=== PATIENT | male | born 1955 | race Asian ===

== ENCOUNTER 2018-12-01 09:24 | Emergency (ER) | payer OTHER ==
[~2018-12-01] VITALS: Ht 165.1 cm; Wt 60.0 kg
[2018-12-01 09:28] VITALS: Ht 165.1 cm; Wt 60.0 kg
[2018-12-01] MEDS ORDERED: SOD CHLORIDE 0.9% 600 ML IV ONE (10:00)
[2018-12-01] MEDS ORDERED: INSU100I12 SQ (10:17)
[2018-12-01] MEDS ORDERED: FLUT1AER INHALATION (10:18)
[2018-12-01] MEDS ORDERED: ALBU18HF INHALATION (10:18)
[2018-12-01] MEDS ORDERED: ALBU2.5V3 NEB (10:18)
[2018-12-01] MEDS ORDERED: ALBU90AE INHALATION (10:19)
[2018-12-01] MEDS ORDERED: TIOT18CA INHALATION (10:19)
[2018-12-01] MEDS ORDERED: LANT3I SC (10:20)
[2018-12-01] MEDS ORDERED: SITA100T11 PO (10:21)
[2018-12-01] MEDS ORDERED: OLOP5DRO12 BOTH EYES (10:21)
[2018-12-01] MEDS ORDERED: ROFL500T6 PO (10:21)
[2018-12-01] MEDS ORDERED: METF100010 PO (10:22)
[2018-12-01] MEDS ORDERED: ASPI-817 PO (10:28)
[2018-12-01] MEDS ORDERED: LOSA25TA12 PO (10:28)
[2018-12-01] MEDS ORDERED: SIMV10TA PO (10:28)
[2018-12-01] MEDS ORDERED: SOD CHLORIDE 0.9% 1,000 ML IV STA (10:58)
[2018-12-01] MEDS ORDERED: INSULIN LISPRO 100 UNIT/ML VIAL SC STA (10:58)
[2018-12-01] MEDS ORDERED: GLUCAGON 1 MG INJ IM PRN (11:30)
[2018-12-01] MEDS ORDERED: GLUCOSE GEL 15 GRAM TUBE BUCCAL PRN (11:30)
[2018-12-01] MEDS ORDERED: GLUCOSE GEL 15 GRAM TUBE PO PRN ×2 (11:30)
[2018-12-01] MEDS ORDERED: DEXTROSE 50% 50 ML SYRINGE IV PRN ×2 (11:30)
[2018-12-01] MEDS ORDERED: INSULIN REGULAR 10 ML INJ IV STA (12:13)
[2018-12-01] MEDS ORDERED: INSULIN REGULAR, HUMAN 100 UNIT/1 ML 3ML VIAL IV STA (12:37)
--- NOTE | 2018-12-01 13:02 | ERD ---
ER Documentation Chief Complaint Chief Complaint glucometer read Hi @ home , humalog 12 units taken , accu 494 here HPI This is a 63-year-old male with a past medical history of insulin-dependent diabetes mellitus. The patient has been expensing polyuria and polydipsia over the past several days. He also has a history of COPD and macular degeneration. The patient took his blood sugar at home and it read greater than 600. He then took 12 units of Humalog and 15 minutes later was 597. He phoned his sister who instructed him to go to the emergency department to be further evaluated. He denies a headache. He has no shortness of breath. He has no chest pain. ROS All systems reviewed and are negative except as per history of present illness. Medications Home Meds Reported Medications Losartan Potassium* (Losartan Potassium*) 25 Mg Tablet, 25 MG PO DAILY, TAB 12/01/18 Aspirin* (Aspirin* EC) 81 Mg Tablet.dr, 81 MG PO DAILY, TAB 12/01/18 Simvastatin* (Zocor*) 10 Mg Tablet, 10 MG PO QHS, #30 TAB 12/01/18 Metformin Hcl* (Metformin Hcl*) 1,000 Mg Tablet, 1000 MG PO WITH BREAKFAST DINNE, #60 TAB 12/01/18 Roflumilast (Daliresp) 500 Mcg Tablet, 500 MCG PO DAILY, TAB 12/01/18 Sitagliptin* (Januvia*) 100 Mg Tablet, 100 MG PO DAILY, #30 TAB 12/01/18 Olopatadine* (Patanol* Ophth) 0.1% - 5 Ml Drops, 1 DROP BOTH EYES TID, EA 12/01/18 Insulin Glargine* (Lantus*) 100 Unit/Ml Soln, 46 UNIT SC QAM, #1 VIAL 12/01/18 Albuterol Sulfate (Proair Respiclick) 90 Mcg Aer.pow.ba, 1 PUFF INHALATION Q4 PRN for SHORTNESS OF BREATH, #1 BOTTLE 12/01/18 Tiotropium Fowler* (Spiriva*) 18 Mcg Cap.w.dev, 1 CAP INHALATION DAILY, #30 CAP 12/01/18 Fluticasone-Vilanterol (Breo Ellipta Inhaler) 100-25 Mcg/Actuation Aer.pow.ba, 1 PUFF INHALATION DAILY, #1 INHALER 12/01/18 Albuterol Sulfate* (Albuterol Sulfate* Neb) 0.083%-3 Ml Neb, 2.5 MG NEB QID PRN for WHEEZING AND SOB, #30 VIAL 12/01/18 Insulin Lispro (Humalog Kwikpen U-100) 100 Unit/1 Ml Insuln.pen, 0 SQ SLIDING SCALE, EA 12/01/18 Discontinued Reported Medications Albuterol Sulfate* (Ventolin HFA*) 18 Gm Hfa.aer.ad, 2 PUFF INHALATION QID, #1 INHALER 12/01/18 Allergies Allergies: Coded Allergies: No Known Allergy (Unverified , 12/01/18) PMhx/Soc Medical and Surgical Hx: pt denies Surgical Hx History of Surgery: No Anesthesia Reaction: No Hx Neurological Disorder: No Hx Respiratory Disorders: Yes (COPD) Hx Cardiac Disorders: No Hx Psychiatric Problems: No Hx Miscellaneous Medical Probl: Yes (MACULAR DEGENERATION) Hx Alcohol Use: No Hx Tobacco Use: Yes Smoking Status: Former smoker Physical Exam Vitals Vital Signs Date Temp Pulse Resp B/P (MAP) Pulse Ox O2 O2 Flow FiO2 Time Delivery Rate 12/01/18 74 18 106/68 100 Room Air 11:33 (81) 12/01/18 73 18 127/71 100 Room Air 10:37 (89) 12/01/18 98.1 86 18 137/71 98 09:28 (93) Physical Exam Constitutional:Well-developed. Well-nourished. HEENT:Normocephalic. Atraumatic. Moist mucous membranes.No tonsillar exudates. Neck: No nuchal rigidity. No lymphadenopathy. No posterior cervical spine tenderness or step-offs. Respiratory: Not using accessory muscles of respiration.Lungs were clear to auscultation bilaterally. No rhonchi. No rales. No wheezing. Cardiovascular: Regular rate regular rhythm.No murmurs. No rubs were appreciated .S1, S2 normal. Distal pulses are palpable 2+ bilaterally. GI: Abdomen was soft. Nontender. Non Distended. No pulsatile abdominal masses or bruits. No rebound. No guarding. Bowel sounds were present and normal. Muscle skeletal: Full range of motion of both the upper and lower extremities bilaterally.Normal muscle tone.No assymetrical calf tenderness or swelling. Skin: No petechia, no purpura. No lesions on the palms or the soles of the feet. No maculopapular rash. NEURO: Patient was alert, awake, orientated x3.No facial droop. Gait observed and normal with no ataxia.Speech had regular rate and rhythm. No focal neurological deficits. Result Diagram: 12/01/18 1008 12/01/18 1008 Results 24 hrs Laboratory Tests Test 12/01/18 09:30 12/01/18 09:44 12/01/18 10:08 12/01/18 10:14 Bedside Glucose 494 mg/dL 457 mg/dL Blood Gas Blood venous Specimen Source Arterial Blood 12/01/2018 10:05: Date Drawn 51 AM Arterial Blood VENOUS LINE Gas Puncture Site [place] Test N/A Venous Blood pH 7.379 Venous Blood 45.8 mmHG pCO2 (Temp Corrected) Venous Blood pO2 34.2 mmHG (Temp Corrected) Venous Blood 26.4 mmol/L HCO3 Venous Blood 67.0 mmHG Oxygen Saturation Venous Blood 0.7 mmol/L Base Excess Venous Blood 17.8 g/dl Total Hemoglobin Venous Blood 66.5 % Oxyhemoglobin Venous Blood 0.1 % Methemoglobin Carboxyhemoglobi 0.7 % n Blood Gas 37.0 C Temperature Blood Gas ROOM AIR Modality FiO2 21.0 % Blood Gas TM Notified Whom Blood Gas 12/01/2018 10:16: Notified Time 28 AM White Blood 6.0 10^3/ul Count Red Blood Count 5.72 10^6/ul Hemoglobin 17.0 g/dl Hematocrit 49.7 % Mean Corpuscular 86.9 fl Volume Mean Corpuscular 29.7 pg Hemoglobin Mean Corpuscular 34.2 g/dl Hemoglobin [place] nt Red Cell 11.5 % Distribution Width Platelet Count 305 10^3/UL Mean Platelet 9.8 fl Volume Immature 0.200 % Granulocytes % Neutrophils % 61.7 % Lymphocytes % 30.2 % Monocytes % 5.8 % Eosinophils % 1.3 % Basophils % 0.8 % Nucleated Red 0.0 /100WBC Blood Cells % Immature 0.010 10^3/ul Granulocytes # Neutrophils # 3.7 10^3/ul Lymphocytes # 1.8 10^3/ul Monocytes # 0.4 10^3/ul Eosinophils # 0.1 10^3/ul Basophils # 0.1 10^3/ul Nucleated Red 0.0 10^3/ul Blood Cells # Prothrombin Time 11.4 Sec Prothrombin Time 0.9 Ratio INR 0.82 International Normalized Ratio Activated 27.7 Sec Partial Thrombop last Time Sodium Level 137 mmol/L Potassium Level 4.2 mmol/L Chloride Level 97 mmol/L Carbon Dioxide 26 mmol/L Level Anion Gap 14 Blood Urea 17 mg/dl Nitrogen Creatinine 0.77 mg/dl Est Glomerular > 60 mL/min Filtrat Rate mL/min Glucose Level 493 mg/dl Calcium Level 10.0 mg/dl Phosphorus Level 2.8 mg/dl Magnesium Level 1.9 mg/dl Total Bilirubin 0.5 mg/dl Direct Bilirubin 0.00 mg/dl Indirect 0.5 mg/dl Bilirubin Aspartate Amino 26 IU/L Transf (AST/SGOT ) Alanine 31 IU/L Aminotransferase (ALT/SGPT) Alkaline 108 IU/L Phosphatase Troponin I < 0.012 ng/ml Total Protein 8.5 g/dl Albumin 4.8 g/dl Globulin 3.70 g/dl Albumin/Globulin 1.29 Ratio Test 12/01/18 11:04 12/01/18 11:49 Bedside Glucose 390 mg/dL 386 mg/dL Current Medications Medications Dose Sig/Verónica Start Time Status Last (Trade) Ordered Route PRN Stop Time Admin Dose Reason Admin Sodium 600 ml @ ONCE ONCE 12/01/18 DC 12/01/18 Chloride 600 mls/hr IV 10:00 10:25 12/01/18 10:59 Sodium 1,000 ml @ Q1H STAT 12/01/18 DC 12/01/18 Chloride 1,000 mls/hr IV 10:58 11:13 12/01/18 11:57 Insulin 10 unit ONCE STAT 12/01/18 DC 12/01/18 Human SC 10:58 11:14 Lispro 12/01/18 11:07 (Humalog) 1 ea NOTE XX 12/01/18 Miscellaneous 11:30 Information Glucose 15 gm Q15M PRN 12/01/18 (Glutose) PO DECREASED 11:30 GLUCOSE Glucose 22.5 gm Q15M PRN 12/01/18 (Glutose) PO DECREASED 11:30 GLUCOSE Dextrose 25 ml Q15M PRN 12/01/18 (D50w IV DECREASED 11:30 Syringe) GLUCOSE Dextrose 50 ml Q15M PRN 12/01/18 (D50w IV DECREASED 11:30 Syringe) GLUCOSE Glucagon 1 mg Q15M PRN 12/01/18 (Glucagen) IM DECREASED 11:30 GLUCOSE Glucose 15 gm Q15M PRN 12/01/18 (Glutose) BUCCAL 11:30 DECREASED GLUCOSE Insulin 5 unit ONCE STAT 12/01/18 Cancel Human IV 12:13 Regular 12/01/18 12:14 (Novolin-R) Insulin 5 unit ONCE STAT 12/01/18 DC 12/01/18 Human IV 12:37 12:49 Regular 12/01/18 12:38 (Humulin R) Procedures/MDM This is a very pleasant 63-year-old male presents the emergency department hyperglycemia. The patient had no ketosis. I did feel this was hypoglycemia that could be treated with subcutaneous insulin and IV fluids. The patient had no leukocytosis. Urinalysis showed no evidence of an infectious process. The patient's blood glucose had improved after fluids and insulin injection and the patient stated he felt comfortable being discharged home The patient was discharged home in fair condition. They were instructed to return to the emergency department at any time if there was any worsening of their condition. The patient stated they would follow up with their PCP in the next 24-48 hours to initiate a suitable medication regimen under the care of their PCP as well as to allow their PCP to monitor any drug reactions. The patient was discharged home with prescriptions after they gave informed consent to the new medication. They were also fully informed by myself on the adverse effects and adverse drug interactions in order to provide adequate safeguards to prevent possible adverse reactions to medications. Departure Diagnosis: Primary Impression: Hyperglycemia Condition: Fair Patient Instructions: Hyperglycemia (High Blood Sugar) Referrals: ARMEN VILLANUEVA (PCP) WELLINGTON ECHEVARRIA MD Dec 01, 2018 13:02
[2018-12-01 13:26] VITALS: BP 113/66; PULSE 78; RESP 18
== END 2018-12-01 13:47 | disposition home or self-care (01) ==
LOC: E/R 09:24
DX: E11.65 Type 2 diabetes mellitus with hyperglycemia (principal); J44.9 Chronic obstructive pulmonary disease, unspecified; Z79.4 Long term (current) use of insulin; Z87.891 Personal history of nicotine dependence
CPT/HCPCS: 36415; 80053; 82803; 82962; 83735; 84100; 84484; 85025; 85610; 85730; 96361; 96372; 96374; 99284; J1815; J7030